=== PATIENT | male | born 1990 | race Caucasian/White ===

== ENCOUNTER 2018-12-22 02:33 | Emergency (ER) | payer OTHER ==
[~2018-12-22] VITALS: Ht 193 cm; Wt 167.8 kg
--- OUTSIDE RECORDS SUMMARY | 2018-12-22 02:41 | XMS REPORT ---
Author Author GENERATED, SYSTEM Organization Unknown Address Unknown Phone Unavailable Care Team Providers Care Services Account Manager Name Role Phone PP Unavailable Reason For Visit Chief Complaint SPIDER BITE Social History Functional Status Vital Signs Results Problems Encounter Diagnosis No relevant problems exist. Encounters Encounter Diagnosis No relevant problems exist. Plan of Care Procedures No relevant procedures performed. Immunizations No immunizations administered or ordered. Hospital Course Hospital Discharge Instructions Allergies, Adverse Reactions, Alerts This section is mechanical service representative of the current allergy information, at the time of the CCD generation. In the case of regeneration of the CCD, the allergy information may not reflect the state of known allergies at the time of the CCD' s subject visit. * Latex Allergy has not been assessed. * IV Contrast Allergy has not been assessed. Medication Medication reconciliation has not been performed.
[2018-12-22] MEDS ORDERED: TETANUS,DIPTH,PERTUSS P/F (BOOSTRIX) 0.5 ML VIAL IM ONE (03:45)
--- NOTE | 2018-12-22 03:45 | ED Upper Extremity ---
General Stated Complaint: RIGHT HAND INJURY Source: patient, RN notes reviewed Exam Limitations: no limitations History of Present Illness Date Seen by Provider: December 22, 2018 Time Seen by Provider: 03:38 Allergies and Home Medications Allergies Coded Allergies: No Known Drug Allergies (Unverified , 12/22/18) Past Dbobjal-Xntnss-Wbsvcn Hx Patient Social History Recent Foreign Travel: No Contact w/Someone Who Travel: No Physical Exam Vital Signs Vital Signs - First Documented 12/22/18 03:35 Temp 98.5 Pulse 112 Resp 18 B/P (MAP) 144/98 (113) Pulse Ox 98 O2 Delivery Room Air Capillary Refill : Height, Weight, BMI Height: '" Weight: lbs. oz. kg; BMI Method: Progress/Results/Core Measures Results/Orders My Orders Orders - RUSTY CHOUDHURY DO DiphtYovani(Acell),Tet Adult (Boostrix (12/22/18 03:45) Hand 3 View Right (12/22/18 03:44) Vital Signs/I&O 12/22/18 03:35 Temp 98.5 Pulse 112 Resp 18 B/P (MAP) 144/98 (113) Pulse Ox 98 O2 Delivery Room Air Departure Impression Primary Impression: Contusion and abrasion right hand Disposition: 01 HOME, SELF-CARE Departure-Patient Inst. Decision time for Depature: 04:03 Referrals: NO,LOCAL PHYSICIAN (PCP/Family) Primary Care Physician Patient Instructions: Contusion (DC), Skin Abrasions (DC) Add. Discharge Instructions: RECOMMEND 600 mg OF IBUPROFEN AND/OR 1000 mg OF TYLENOL EVERY 6 HOURS NEEDED FOR PAIN. DO NOT EXCEED 4000 mg OF TYLENOL IN A 24 HOUR PERIOD. RUSTY CHOUDHURY DO December 22, 2018 03:45
[2018-12-22 04:20] VITALS: BP 144/98
--- NOTE | 2018-12-22 07:18 | Diagnostic Imaging Report ---
PATIENT HISTORY: Right hand injury. TECHNIQUE: 3 views of the right hand COMPARISON: None FINDINGS: No acute fracture or dislocation is seen in the right hand. Alignment appears normal. Joint spaces are preserved. No radiopaque foreign bodies are seen. IMPRESSION: No acute osseous abnormality is seen in the right hand. Dictated by: Dictated on workstation # [id number]
== END 2018-12-22 04:26 | disposition home or self-care (01) ==
LOC: ER FS 02:38
DX: S60.221A Contusion of right hand, initial encounter (principal); Z23 Encounter for immunization; X58.XXXA Exposure to other specified factors, initial encounter
CPT/HCPCS: 73130; 90471; 90715

== ENCOUNTER 2019-10-09 02:17 | Emergency (ER) | payer OTHER ==
[~2019-10-09] VITALS: Ht 193 cm; Wt 180.6 kg
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
[2019-10-09 02:52] VITALS: BP 171/98
== END 2019-10-09 02:52 | disposition home or self-care (01) ==
LOC: EDUNIT# 02:17 → ER FS 02:20
DX: S61.208A Unspecified open wound of other finger without damage to nail, initial encounter (principal); W25.XXXA Contact with sharp glass, initial encounter
CPT/HCPCS: 99282